=== PATIENT | female | born 2005 | race Two or more races ===

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

== ENCOUNTER 2024-05-11 13:17 | Emergency (ER) | payer MEDICAID ==
[~2024-05-11] VITALS: Ht 167.6 cm; Wt 55.0 kg
[2024-05-11 13:30] VITALS: PULSE 92; RESP 12; O2SAT 97
--- NOTE | 2024-05-11 13:40 | ED.PDOC ---
HPI (NEURO) HPI Comments 19 y.o female presents to the ED for an evaluation of seizure today. EMS reports family witnessed patient have a seizure, described as tonic clonic lasting for about 4 minutes. Patient reports feeling seizure come on, was spacing out and then lost consciousness. Patient reports history of seizures, has been taking her Keppra medication as prescribed no dosages missed and last seizure was in November 14, 2023 . Patient denies any symptoms or pain at this time. Chief Complaint: Seizure Time Seen by MD: 13:21 Primary Care Provider: Kye Sun Notes: Nurses Notes, Machining Supervisor Notes, Medications, Allergies Information Source: Patient, Emergency Med Personnel Mode of Arrival: EMS Severity: Moderate Headache Severity: None Timing: Hours Duration: Since onset Seizure Quality: Tonic-clonic Seizure Location: Generalized Onset: At rest Circumstances: Spontaneous Symptoms: None Before: Aura During: LOC After: Normal Mentation History of: Seizure Disorder Modifying factors: Nothing Associated Signs and Symptoms: Aura: Sensory Past Medical History PAST MEDICAL HISTORY: Seizures Surgical History: Denies all surgeries APPLIED PSYCHOLOGY TEACHER History: No Pertinent APPLIED PSYCHOLOGY TEACHER History Family History Family History: Reviewed,noncontributory to illness Social History Smoker: Non-Smoker Alcohol: Denies ETOH Use Drugs: Marijuana Lives In: Home Constitutional: denies: chills, diaphoresis, fatigue, fever, malaise, sweats, weakness, others EENTM: denies: blurred vision, double vision, ear bleeding, ear discharge, ear drainage, ear pain, ear ringing, eye pain, eye redness, hearing loss, mouth pain, mouth swelling, nasal discharge, nose bleeding, nose congestion, nose pain, photophobia, tearing, throat pain, throat swelling, voice changes, others Respiratory: denies: cough, hemoptysis, orthopnea, SOB at rest, shortness of breath, SOB with excertion, stridor, wheezing, others Cardiovascular: denies: chest pain, dizzy spells, diaphoresis, Dyspnea on exertion, edema, irregular heart beat, left arm pain, lightheadedness, palpitations, PND, syncope, others Gastrointestinal: denies: abdomen distended, abdominal pain, blood streaked bowels, constipated, diarrhea, dysphagia, difficulty swallowing, hematemesis, melena, nausea, poor appetite, poor fluid intake, rectal bleeding, rectal pain, vomiting, others Genitourinary: denies: abnormal vagina bleeding, burning, dyspareunia, dysuria, flank pain, frequency, hematuria, incontinence, pain, , vagina discharge, urgency, others Neurological: reports: seizure; denies: dizziness, fainting, headache, left sided numbness, left sided weakness, numbness, paresthesia, pre-existing deficit, right sided numbness, right sided weakness, speech problems, tingling, tremors, weakness, others Musculoskeletal: denies: back pain, gout, joint pain, joint swelling, muscle pain, muscle stiffness, neck pain, others Integumetry: denies: bruises, change in color, change in hair/nails, dryness, laceration, lesions, lumps, rash, wounds, others Allergic/Immunocompromised: denies: Difficulty Healing, Frequent Infections, Hives, Itching, others Hematologic/Lymphatic: denies: anemia, blood clots, easy bleeding, easy bruising, swollen glands, others Endocrine: denies: excessive hunger, excessive sweating, excessive thirst, excessive urination, flushing, intolerance to cold, intolerance to heat, unexplained weight gain, unexplained weight loss, others Psychiatric: denies: anxiety, bipolar disorder, depression, hopeless, panic disorder, schizophrenia, sleepless, suicidal, others All Other Systems: Reviewed and Negative Physical Exam General Appearance: No Apparent Distress, Normal HEENT: Normal ENT Inspection, Pharynx Normal, TMs Normal Neck: Full Range of Motion, Non-Tender, Normal, Normal Inspection Respiratory: Chest Non-Tender, Lungs Clear, No Accessory Muscle Use, No Respiratory Distress, Normal Breath Sounds Cardiovascular: Other (regular rhythm rate ) Breast Exam: Deferred Gastrointestinal: No Organomegaly, Non Tender, No Pulsatile Mass, Normal Bowel Sounds, Soft Genitalia: Deferred Pelvic: Deferred Rectal: Deferred Extremities: No calf tenderness, Normal capillary refill, Normal inspection, Normal range of motion, Non-tender, No pedal edema Musculoskeletal : Apperance: Normal Neurologic: dressage judge II-XII nml as Tested, Seizure, Other (no tongue or mouth laceration) Cerebellar Function: Normal Reflexes: Normal Skin: Dry, Normal Color, Warm Lymphatic: No Adenopathy Was a procedure done? Was a procedure done?: No Differential Diagnosis (SZ) Seizure: Psychogenic Seizure, Anticonvulsant Withdrawl, Closed Head Injury, Drug Ingestion, Hypocalcemia, Hypoglycemia, Hyponatremia, Hypoxemia, Syncope, Epilepsy-Break Through, Epilepsy-Status X-Ray, Labs, Meds, VS Vital Signs Date Time Temp Pulse Resp B/P (MAP) Pulse Ox O2 Delivery O2 Flow Rate FiO2 05/11/24 14:32 97.7 92 11 116/68 (84) 99 97.7 05/11/24 13:29 98.1 110 18 115/72 (86) 97 Lab Test 05/11/24 14:03 Range/Units Sodium Level 138 136-145 mmol/L Potassium Level 3.8 3.5-5.1 mmol/L Chloride Level 107 98-107 mmol/L Carbon Dioxide Level 23 20-31 mmol/L Anion Gap 8 5-15 Blood Urea Nitrogen 10 9-23 mg/dL Creatinine 0.78 0.550-1.02 mg/dL Glomerular Filtration Rate Calc 111 >90 mL/min BUN/Creatinine Ratio 12.8 10.0-20.0 Serum Glucose 90 74-106 mg/dL Calcium Level 9.8 8.7-10.4 mg/dL Total Bilirubin 0.3 0.2-1.0 mg/dL Aspartate Amino Transferase (AST) 11 L 13-40 U/L Alanine Aminotransferase (ALT) 12 7-40 U/L Alkaline Phosphatase 54 46-116 U/L Total Protein 7.2 5.7-8.2 g/dL Albumin 4.9 H 3.2-4.8 g/dL Beta HCG, Quantitative 0.2 L 1.5-4.2 mIU/mL Current Medications Medications (Trade) Dose Ordered Sig/Ty Route Start Time Stop Time Status Last Admin Levetiracetam (Keppra Tablet) 1,000 mg ONCE ONCE PO 05/11/24 13:45 05/11/24 13:46 DC 05/11/24 14:54 Time of 1ST Reevaluation: 13:38 Reevaluation 1ST: Unchanged Time of 2ND Reevaluation: 15:07 Reevaluation 2ND: Resolved Patient Education/Counseling: Diagnosis, Treatment, Prognosis, Need For Follow Up Family Education/Counseling: No Family Present Additional Information I reviewed the following notes from patient's past medical encounters: 11/14/23 for seizures 07/2022 fro seizures as well The following tests were ordered, and results were reviewed by me: CMP, Beta HCG, Drug screen Additional Information was gathered from interviewing the following independent historians: Paramedics I reviewed and agreed with the following test results read by other providers: none I discussed treatment and results with medical personnel pt has n ot had another seizure episode since here. i did provide her an extra dose of keppra. she has a neurologist who follows her for this Departure 1 Departure Time of Disposition: 15:08 Impression: Primary Impression: Breakthrough seizure Disposition: 01 HOME / SELF CARE / HOMELESS Condition: Good Discharged With: Self Critical Care Note Critical Care Time?: No Stability Stability form required: No I personally scribed for ELAINE BARAHONA MD ([email or web address]) on 05/11/24 at 13:40. Electronically submitted by Maite Guan ([facility]). ELAINE BARAHONA MD May 11, 2024 13:40
[2024-05-11 14:32] VITALS: BP 116/68; PULSE 92; RESP 11; TEMP 97.7; O2SAT 99
[2024-05-11 14:39] LABS: Alanine Aminotransferase 12 U/L (7-40); Alkaline Phosphatase 54 U/L (46-116); Anion Gap 8 (5-15); BUN/Creatinine Ratio 12.8 (10.0-20.0); Blood Urea Nitrogen 10 mg/dL (9-23); Calcium 9.8 mg/dL (8.7-10.4); Carbon Dioxide 23 mmol/L (20-31); Glucose 90 mg/dL (74-106); Potassium 3.8 mmol/L (3.5-5.1); Sodium 138 mmol/L (136-145); Total Protein 7.2 g/dL (5.7-8.2)
[2024-05-11] MEDS: levETIRAcetam 500 MG TAB PO ONE (14:54)
[2024-05-11 15:00] LABS: Albumin 4.9 g/dL (3.2-4.8); Aspartate Aminotransferase 11 U/L (13-40); Bilirubin, Total 0.3 mg/dL (0.2-1.0); Chloride 107 mmol/L (98-107)
== END 2024-05-11 15:39 | disposition home or self-care (01) ==
LOC: ER 13:17 → EDBD 13:17 → ER 15:39
DX: G40.909 Epilepsy, unspecified, not intractable, without status epilepticus (principal); F12.90 Cannabis use, unspecified, uncomplicated
CPT/HCPCS: 36415; 80053; 84702